=== PATIENT | female | born 1995 | race Caucasian/White ===

== ENCOUNTER 2024-03-24 07:09 | Outpatient (CLI) | payer OTHER, SELFPAY ==
--- NOTE | 2024-03-24 07:15 | CRLHL7_ITS ---
For Patients: As a result of the Century Cures Act, medical imaging exams and procedure reports are released immediately into your electronic medical record. You may view this report before your referring provider. If you have questions, please contact your health care provider. INDICATION: 28 year-old female. First trimester scan, establish dates and viability. COMPARISON: None. TECHNIQUE: Real-time gale-scale imaging of the pelvis was performed. FINDINGS: Sonographic imaging demonstrates a single living intrauterine gestation. The embryo demonstrates a regular cardiac rate measuring 176 beats per minute. The embryo`s crown-rump length measurement of 2.2 cm corresponds to a gestational age of 9 weeks 0 days with a sonographic due date of October 27, 2024. There is a normal-appearing yolk sac measuring up to 4.2 mm. There are no gross abnormalities noted within the embryo at this early state of development. The placenta has not yet developed. The gestational sac has a normal appearance and there is no evidence of a perigestational hemorrhage. The amount of fluid within the sac appears appropriate for gestational age. The cervix is closed. The myometrium appears normal. The ovaries are of normal size. The right ovary measures 4.1 x 2.9 x 2.8 cm and contains a small corpus luteum cyst of measuring 2.7 x 1.6 x 2.4 cm. The left ovary measures 3.5 x 1.6 x 2.9 cm. There are no suspicious fluid collections noted in the cul-de-sac. IMPRESSION: Normal first trimester OB ultrasound exam. Gestational age calculated at 9 weeks 0 days with a sonographic due date of October 27, 2024. Dictated by Gary Roque MD @ 03/24/2024 4:09:17 PM (Electronically Signed)
== END 2024-03-24 07:10 | disposition home or self-care (01) ==
PROVIDERS: Visit Provider Advanced Practice Midwife
DX: Z34.91 Encounter for supervision of normal pregnancy, unspecified, first trimester (principal); Z3A.09 9 weeks gestation of pregnancy
CPT/HCPCS: 76817

== ENCOUNTER 2024-03-24 08:47 | Outpatient (CLI) | payer OTHER, SELFPAY | END 2024-03-24 08:48 | disposition home or self-care (01) | PROVIDERS: Visit Provider Advanced Practice Midwife | DX: Z34.91 Encounter for supervision of normal pregnancy, unspecified, first trimester (principal); Z3A.08 8 weeks gestation of pregnancy | CPT/HCPCS: 86592; 86703; 86704; 86706; 86762; 86787; 86803; 86850; 86900; 86901; 87086; 87340 ==

== ENCOUNTER 2024-06-23 10:11 | Outpatient (CLI) | payer OTHER, SELFPAY | END 2024-06-23 10:12 | disposition home or self-care (01) | LOC: US 10:12 | PROVIDERS: Visit Provider Advanced Practice Midwife | DX: Z34.91 Encounter for supervision of normal pregnancy, unspecified, first trimester (principal); Z3A.21 21 weeks gestation of pregnancy | CPT/HCPCS: 76805 ==

== ENCOUNTER 2024-08-18 08:34 | Outpatient (CLI) | payer OTHER, SELFPAY | END 2024-08-18 08:35 | disposition home or self-care (01) | LOC: NFLDREF 08-22 00:53 | PROVIDERS: Visit Provider Advanced Practice Midwife | DX: Z34.83 Encounter for supervision of other normal pregnancy, third trimester (principal) | CPT/HCPCS: 86592 ==

== ENCOUNTER 2024-08-27 16:53 | Outpatient (CLI) | payer OTHER, SELFPAY ==
[2024-08-27 17:09] VITALS: PULSE 75; O2SAT 97
[2024-08-27 17:14] VITALS: BP 114/68; PULSE 77; RESP 77; TEMP 36.9
[2024-08-27 17:18] LABS: Appearance Urine Clear (Clear); Bilirubin Urine Negative (Negative); Blood Urine Negative (Negative); Color Urine Yellow (Yellow); Glucose Urine Negative (Negative); Ketones Urine Trace (Negative); Leukocyte Esterase Urine Trace (Negative); Nitrite Urine Negative (Negative); Protein Urine Negative (Negative); Specific Gravity Urine 1.015 (1.000-1.030); Urobilinogen Urine 0.2 (0.2-1.0); pH Urine 7.5 (5.0-8.5)
[2024-08-27 17:31] LABS: Bacteria Urine Few; Squamous Epithelial Cell Urine Few (None-Few)
[2024-08-27 18:14] LABS: Trichomonas No Trichomonas Seen (None Seen); Yeast No Yeast Seen (None Seen)
[2024-08-27 18:15] LABS: Clue Cells <20% Clue Cells Seen (None Seen)
[2024-08-27 18:42] LABS: Basophils Percent Auto 0.2 % (0.0-3.0); Eosinophils Percent Auto 0.6 % (0.0-7.0); Hematocrit 37.3 % (33.0-51.0); Hemoglobin* 12.4 gm/dL (12.0-16.0); Immature Granulocytes Pct Auto 0.4 %; Lymphocytes Percent Auto 23.4 % (20-44); Mean Corpuscular HGB Conc 33 gm/dL (32-36); Mean Corpuscular Hemoglobin 30 pg (26-34); Mean Corpuscular Volume 89 fL (80-100); Monocytes Percent Auto 3.4 % (0.0-11.0); Platelet Count* 211 K/uL (140-440); RDW Coefficient of Variation % 13.9 % (11.5-15.5); Red Blood Count 4.21 m/uL (4.00-5.20); White Blood Count* 11.42 K/uL (4.50-11.00)
--- NOTE | 2024-08-27 18:50 | P.OBLDTN_ITS ---
OB - Triage/Final Diagnosis Visit Information Date of evaluation: 08/27/24 Narrative: Anastasia is a 28 year old 2 para 1 at 30.6 weeks gestation by LMP, who presents with abdominal pain. She states that starting around 1400 she had a more constant cramping pain that increased after movement and ambulation. She did rest for about a half hour which helped the pain somewhat but it retuned after she got up and moved again. She has been feeling good movement and denies bleeding. Has normal appearing vaginal discharge. Wet prep was normal, UA mostly normal and is pending culture. Will do a CBC. Denies fever body aches chills of other associated symptoms. She endorses a flushed face which sometimes proceeds a fever for her. VSS. She denies changes in pain based on specific movements but does feel that it improves when on her side and increases with sitting or upright positions. She is passing gas and endorses a BM today. We discussed possible causes and contributors. On palpation she endorse pain with deeper palpation to the top middle of her uterus (she states this is where her placenta is located) and in the back LQ on the right and left side with a slight more on the right side. ON SVE she was found to be closed, thick, and high. We discussed an US evaluation which she declines at this time. She states that after resting the pain is mostly resolved. She is requesting to ambulate and see if the pain returns. If it remains tolerable she would like to discharge. If it returns she will consider an US evaluation. FHR tracing reactive and no contractions were noted on the TOCO. She denies contractions and doesn't feel that this is labor related. She states that she feels very reassured with a good FHR tracing. Reviewed strict reevaluation if symptoms increase, are not resolving or develops other associated symptoms. Evaluation Cervical dilation (cm): 0 Laboratory results: Laboratory Tests 08/27/24 08/27/24 08/27/24 Range/Units 18:36 18:00 17:09 WBC Pending RBC Pending Hgb Pending Hct Pending MCV Pending MCH Pending MCHC Pending Plt Count Pending Neut % (Auto) Pending Lymph % (Auto) Pending [place] % (Auto) Pending Eos % (Auto) Pending Baso % (Auto) Pending Neut # (Auto) Pending Lymph # (Auto) Pending [place] # (Auto) Pending Eos # (Auto) Pending Baso # (Auto) Pending Urine Color Yellow (Yellow) Urine Appearance Clear (Clear) Urine pH 7.5 (5.0-8.5) Ur Specific Harmony 1.015 (1.000-1.030) Urine Protein Negative (Negative) Urine Glucose (UA) Negative (Negative) Urine Ketones Trace A (Negative) Urine Blood Negative (Negative) Urine Nitrite Negative (Negative) Urine Bilirubin Negative (Negative) Urine Urobilinogen 0.2 (0.2-1.0) Ur Leukocyte Esterase Trace A (Negative) Urine RBC 2-5 A (0-2) Urine WBC 2-5 (0-5) Ur Squamous Epith Cells Few (None-Few) Urine Bacteria Few A (None) Vaginal Trichomonas No Trichomonas Seen (None Seen) Vaginal Yeast No Yeast Seen (None Seen) Vaginal Clue Cells <20% Clue Cells Seen A (None Seen) Vital signs: Vital Signs - 24 hr 08/27/24 17:09 08/27/24 17:14 08/27/24 17:14 Temperature 98.4 F Pulse Rate 77 Respiratory Rate 77 H Blood Pressure 114/68 Pulse Oximetry 97 Fetus (Single) Heart Rate Baseline: 135 Rubbish Collection Supervisor Variability: Moderate (6-25) Monitor Accelerations: Present Monitor Decelerations: None Final Diagnosis (1) : Status: Acute (2) Abdominal pain affecting : Status: Acute
[2024-08-27 18:53] LABS: Slide Review Reflex No
--- NOTE | 2024-08-27 19:38 | CRLHL7_ITS ---
For Patients: As a result of the Century Cures Act, medical imaging exams and procedure reports are released immediately into your electronic medical record. You may view this report before your referring provider. If you have questions, please contact your health care provider. CLINICAL HISTORY: Abdominal cramping FINDINGS: Sonographic imaging demonstrates normal size and uniform echotexture of the liver. The spleen is of normal size. The pancreas appears normal. The proximal abdominal aorta and IVC appear normal. There is no evidence of ascites. Cholelithiasis. 2.6 centimeter gallstone present. The gallbladder wall measures 2 mm in thickness. The common bile duct measures 3 mm in size within the bal hepatis. The kidneys appear symmetric. The right kidney measures 12.9 cm in length and the left kidney measures 13.3 cm. There is no evidence of a renal calculus or hydronephrosis. IMPRESSION: 1. Cholelithiasis with 2.6 centimeter gallstone. Normal gallbladder wall. No pericholecystic fluid is seen. Dictated by Mikala Carter MD @ 08/27/2024 8:58:43 PM (Electronically Signed)
[2024-08-27] MEDS: ACETAMINOPHEN 500 MG TABLET 1000 MG PO (21:09)
--- NOTE | 2024-08-27 21:35 | PC.OBNST ---
NST Note NST Note Start: 08/27/24 16:56 Freq: ONCE Status: Active Protocol: Document 08/27/24 21:33 OLAYINKAGregory (Rec: 08/27/24 21:34 JOSEPH Marin) NST Note 2 Para (# of births) 1 EDC 10/30/24 Gestational Age In Weeks & Days 30 Weeks & 6 Days Patient Presented with Complaint(s) of Contractions/cramping,Pain, Nausea and vomiting If Pain, describe location abdominal pain Patient had abdominal ultrasound and was found to have a 2.6 cm gallstone. Reactive Yes Appropriate for Gestational Age Yes ELIZABETH Ryan RN Date 08/27/24 Reactive Yes Appropriate for Gestational Age Yes ELIZABETH Leach CNM Date 08/27/24 OB NST charge Yes Complete NST Note via Write Note Yes The provider's electronic signature indicates the NST is reactive/appropriate for gestational age. *Note to provider: If an addendum is required, open the patient's chart and click on the note under the Nurse/Allied Health tab.
== END 2024-08-27 21:23 | disposition home or self-care (01) ==
LOC: OB OUT 16:53 → OB 16:54
PROVIDERS: Visit Provider Advanced Practice Midwife
DX: O47.03 False labor before 37 completed weeks of gestation, third trimester (principal); Z3A.30 30 weeks gestation of pregnancy
CPT/HCPCS: 36415; 59025; 76700; 81001; 81003; 85025; 87086; 87210; G0463; A9270

== ENCOUNTER 2024-10-06 09:59 | Outpatient (CLI) | payer OTHER, SELFPAY ==
[2024-10-07 11:00] LABS: Strep B DNA Probe Negative (Negative)
[2024-10-07 11:07] LABS: Strep B Susceptibility Needed? No
== END 2024-10-06 10:00 | disposition home or self-care (01) ==
LOC: NFLDREF 09:59
PROVIDERS: Visit Provider Advanced Practice Midwife
DX: Z34.83 Encounter for supervision of other normal pregnancy, third trimester (principal)
CPT/HCPCS: 87081; 87653

== ENCOUNTER 2024-10-27 09:58 | Outpatient (CLI) | payer OTHER, SELFPAY | END 2024-10-27 09:59 | disposition home or self-care (01) | LOC: NFLDREF 10-30 16:38 | PROVIDERS: Visit Provider Advanced Practice Midwife | DX: R30.0 Dysuria (principal) | CPT/HCPCS: 87086 ==

== ENCOUNTER 2024-11-02 17:55 | Outpatient (CLI) | payer OTHER, SELFPAY ==
--- OUTSIDE RECORDS SUMMARY | 2024-04-29 04:50 | XMS_ITS ---
Author Organization [facility] Address [address] [place] [phone] Care Team Providers Care Resource Development Manager Name Role Phone BRIELLE CARNEY Unavailable [phone] Allergies No Known Allergies REASON FOR VISIT ALLERGIC REACTION Problems Problem Type SNOMED Code ICD Code Onset Dates Problem Status W/U Status Risk Notes Problem [id number] Atopic dermatitis, unspecified type (L20.9) Active confirmed Vital Signs Temperature 98.6 degrees Fahrenheit 04/29/20 24 Blood pressure systolic 109 mm Hg 04/29/20 24 Blood pressure diastolic 71 mm Hg 024 Heart Rate 63 /min 04/29/2024 Respiratory Rate 17 /min 04/29/2024 Height 68 in 04/29/2024 Weight 180 lbs 04/29/2024 BMI 27.37 kg/m2 04/29/2024 Oximetry 99 % 04/29/2024 Weight-kg 81.65 kg 04/29/2024 Encounters Encounter Location Date Provider Diagnosis Urgent [address] [address] 04/29/2024 BRIELLE CARNEY Atopic dermatitis, unspecified type L20.9 and Pruritus L29.9 Assessments Encounter Date Diagnosis (ICD Code) Assessment Notes Treatment Notes Treatment Clinical Notes Section Notes 04/29/2024 Atopic dermatitis, unspecified type (ICD-10 - L20.9) Follow-up precautions discussed for any worsening of condition 04/29/2024 Pruritus (ICD-10 - L29.9) Continue Benadryl every 4 hours as needed. Zyrtec daily. 04/29/2024 Other Reviewed patien t history and previous charts available. Discussed with patient pertinent previous history. The patient left in good spirits with personal belongings to home in no observed distress. The patient agreed to the plan of care. Risk and benefits of all medications and treatments given were discussed with the patient who verbalized an understanding of all education. Questions encouraged and answered. The patient verbalized an understanding of all instructions given. Plan Of Treatment Treatment Notes Assessment Notes Atopic dermatitis, unspecified type Foll ow-up precautions discussed for any worsening of condition Pruritus Continue Benadryl ev isacc 4 hours as needed. Zyrtec daily. Other Reviewed patient his tory and previous charts available. Discussed with patient pertinent previous history. The patient left in good spirits with personal belongings to home in no observed distress. The patient agreed to the plan of care. Risk and benefits of all medications and treatments given were discussed with the patient who verbalized an understanding of all education. Questions encouraged and answered. The patient verbalized an understanding of all instructions given. Next Appt Details Follow Up: prn, Reason: Progress Notes * ESTHER MARROQUINEDOB:[birth year] (29 yo F)Acc No.[id number]:04/29/2024 Progress Notes Patient: ESTHER WEI Provider: Elle Carney MD :1995 A ge:28 Y S ex:Female Date:04/29/2024 Phone: Address:[address] [place], [place] [id number] Subjective: * Chief Complaints: * 1 . ALLERGIC REACTION. * HPI: G eneral: 28-year-old female who is 13 weeks complaining of a rash all over her arms and torso this morning. She does not know how she got the rash and is unaware of any allergies. She took a Benadryl about an hour and a half ago and now reports the rash is almost gone. * ROS: G eneral/Constitutional: Patient denies c hills, fatigue, fever, headache, Body aches. R espiratory: Patient denies s hortness of breath. C ardiovascular: Patient denies c hest pain, dizziness, weakness. G astrointestinal: Patient denies a bdominal pain, nausea, vomiting, diarrhea.? S kin: Comments S [facility] for details. N eurologic: Patient denies b alance difficulty, dizziness, gait abnormality, new onset headache, tingling/numbness. * Medical History: , : yes. * Family History: M other: alive. * Medications: N one * Allergies: N .K.D.A. Objective: * Vitals: W t:180lbs, Ht: 68 in, Temp:98.6F, BP:109/71mm Hg, HR:63/min, RR:17/min, Oxygen sat %:99%, Wt-k.65 kg, BMI:27.37Index. * Examination: G eneral Examination: GENERAL APPEARANCE: p leasant, well nourished, in no acute distress. HEAD: n ormocephalic, atraumatic. LYMPH NODES: n o lymphadenopathy. SKIN: F aint maculopapular rash over forearms. HEART: r egular rate and rhythm. LUNGS: c lear to auscultation bilaterally, good air movement. NEUROLOGIC: a lert and oriented, cooperative with exam, gait normal. Assessment: * Assessment: 1. A topic dermatitis, unspecified type - L20.9 (Primary) 2 . P ruritus - L29.9 Plan: * Treatment: 2. P ruritus Notes: Continue Benadryl every 4 hours as needed. Zyrtec daily. 3. O thers Notes: Reviewed patient history and previous charts available. Discussed with patient pertinent previous history. The patient left in good spirits with personal belongings to home in no observed distress. The patient agreed to the plan of care. Risk and benefits of all medications and treatments given were discussed with the patient who verbalized an understanding of all education. Questions encouraged and answered. The patient verbalized an understanding of all instructions given. * Follow Up: p rn * Billing Information: * Visit Code: 00883 NEW OUTPATIENT/OFFICE VISIT LEVEL 3. Modifiers: 25 * Procedure Codes: * Electronic signature of BRIELLE CARNEY M.D. on 11/02/2024 at 06:58 PM CDT Sign off status: Pending * Provider: Elle Carney MD Date: 06/30/2023 Generated for Georgia walter/Ayanna/Shanaitting on: 0 11/02/2024 06:58 PM CDT History and Physical Notes * HPI (History of Present Illness) Category Sub-Category Detail Notes Category Not es General 28-year-old fem kennedy who is 13 weeks complaining of a rash all over her arms and torso this morning. She does not know how she got the rash and is unaware of any allergies. She took a Benadryl about an hour and a half ago and now reports the rash is almost gone. Examination Category Sub-Category Detail Notes Category Not es General Examination GENERAL APPEARANCE: pleasant , well nourished, in no acute distress HEAD: normocephalic, atrau matic THROAT: NECK/THYROID: HEART: regular rate and rhy thm LUNGS: clear to auscultatio n bilaterally, good air movement ABDOMEN: NEUROLOGIC: alert and oriented, cooperative with exam, gait normal SKIN: Faint maculopapular rash over forearms LYMPH NODES: no lymphadenopathy
[2024-11-02 18:45] VITALS: BP 104/75; PULSE 68; PULSE 75; O2SAT 98
--- OUTSIDE RECORDS SUMMARY | 2024-11-02 18:58 | XMS_ITS | Clinical Summary ---
Author Organization [facility] Address [address] [place] [address] Care Team Providers Care Warp Splitter Name Role Phone Yajaira Lane MD Primary Care Provider Allergies No known active allergies Medications norethindrone, Contraceptive, (MICRONOR, 28,) 0.35 mg tabletIndication s: control counseling Take 1 Tablet (0.35 mg) by mouth once daily. 84 Tablet 4 01/11/2024 Active vit 28/iron fum/folic (multivitamin folic acid 1 mg) 01/19/2024 Active cholecalciferol (Vitamin D) 1,000 unit capsule 01/19/2024 Active Active Problems Problem Noted Date Diagnosed Date PCOS (polycystic ovarian syndrome) 01/07/2024 History of herniated intervertebral disc 024 Social History Tobacco Use Types Packs/Day Years Used Date Smoking Tobacco: Never Smokeless Tobacco: Never Tobacco Cessation:Counseling Given: Not Answered Alcohol Use Standard Drinks/Week Comments Yes 0 (1 standard drink = 0.6 oz pur e alcohol) occasinally PHQ-2 Answer Date Recorded PHQ-2 TOTAL SCORE 0 01/19/2024 Social Connections Answer Date Recorded Do you often feel lonely or isolated from those around you? 0 01/07/2024 Financial Resource Strain Answer Date R ecorded Difficulty of Paying Living Expenses 3 01/07/2024 Difficulty of Paying Living Expenses Not on file 01/07/2024 Food Insecurity Answer Date Recorded Do you worry your food will run out before you are able to buy more? 1 01/07/2024 Transportation Needs Answer Date Record ed Does lack of transportation keep you from medica l appointments? 1 01/07/2024 Does lack of transportation keep you from work, meetings or getting things that you need? 1 01/07/2024 Housing Stability Answer Date Recorded What is your housing situation today? 1 01/07/2024 Utilities Answer Date Recorded Do you have trouble paying f or utilities (for example, heat, electricity, water, phone)? 1 01/07/2024 Comments No Sex and Gender Information Value Date Recorded Sex Assigned at Not on file Legal Sex Female 12:36 PM CDT Gender Identity Not on file Sexual Orientation Not on file Obstetrics History Last Filed Vital Signs Vital Sign Reading Time Taken Comments Blood Pressure 116/56 01/19/2024 10:10 AM CDT Pulse 61 01/19/2024 10:10 AM CDT Temperature 36.9 C (98.4 F) 01/19/2024 10:10 AM CDT Respiratory Rate 16 01/19/2024 10:10 AM CDT Oxygen Saturation 100% 01/19/2024 10:10 AM CDT Inhaled Oxygen Concentration - - Weight 77.6 kg (171 lb) 01/19/2024 10:10 AM CDT Height 170.2 cm (5' 7) 01/07/2024 1:54 PM CDT Body Mass Index 26.78 01/07/2024 1:54 PM CDT Plan of Treatment Health Maintenance Due Date Last Done Comments Tdap 10/08/2007 HIV for age 15-65 10/08/2011 Hepatitis C screening for ag e 18-79 2014 Hepatitis B series for 19+ ( 1 of 3 - 19+ 3-dose series) 10/08/2015 Tetanus booster 2016 Pap test for age 21-65 2017 COVID-19 vaccine series ( season) 2024 BMI (ht and wt on same day) for age 18+ 01/06/2025 01/07/2024 Influenza Vaccine (Season Ended) 2025 Depression screening for age 12+ 01/18/2025 01/19/20 24 Pneumococcal series for age 6-49 Aged Out No longer eligible based on patient's age to complete this topic Insurance [employer] Care Teams Warp Splitter Relationship Specialty [place] [address] [place] [address] PCP - General Family Practice 01/07/24
--- OUTSIDE RECORDS SUMMARY | 2024-11-02 18:58 | XMS_ITS | Patient Health Record ---
Author Organization [facility] Address [address] [place] [address] Care Team Providers Care Construction Inspector Name Role Phone BRIELLE CARNEY Unavailable [phone] Allergies No Known Allergies Reason For Referral No Information Problems Problem Type SNOMED Code ICD Code Onset Dates Problem Status W/U Status Risk Notes Problem [id number] Atopic dermatitis, unspecified type (L20.9) Active confirmed Vital Signs Heart Rate 63 /min 04/29/2024 Temperature 98.6 degrees Fahrenheit 04/29/2024 Respiratory Rate 17 /min 04/29/2024 Oximetry 99 % 04/29/2024 Blood pressure diastolic 71 mm Hg 04/29/2024 Weight-kg 81.65 kg 04/29/2024 Height 68 in 04/29/2024 Blood pressure systolic 109 mm Hg 04/29/2024 Weight 180 lbs 04/29/2024 BMI 27.37 kg/m2 04/29/2024 Encounters Encounter Location Date Provider Diagnosis Urgent [address] [address] 04/29/2024 BRIELLE CARNEY Atopic dermatitis, unspecified type [...] of all instructions given. Plan Of Treatment No Information Insurance Providers Payer Name Payer Address Payer Phone Subscriber Number Group Number Insured Name Patient Relationship to Insured Coverage Start Date Coverage End Date [address]annie [address] [place] [phone] [id number] ESTHER MARROQUIN Self - patient is the insured 4
--- NOTE | 2024-11-02 19:16 | PC.OBNST ---
NST Note NST Note Start: 11/02/24 18:10 Freq: ONCE Status: Active Protocol: Document 11/02/24 19:15 SHERLEY (Rec: 11/02/24 19:16 SHERLEY Desktop) NST Note 2 Para (# of births) 1 EDC 10/30/24 Gestational Age In 40 Weeks & 3 Days Weeks & Days Patient Presented Contractions/cramping with Complaint(s) of Reactive Yes Appropriate for Yes Gestational Age ELIZABETH Hernandez RN Date 11/02/24 Reactive Yes Appropriate for Yes Gestational Age ELIZABETH Burnett RN Date 11/02/24 OB NST charge Yes Complete NST Note Yes via Write Note The provider's electronic signature indicates the NST is reactive/appropriate for gestational age. *Note to provider: If an addendum is required, open the patient's chart and click on the note under the Nurse/Allied Health tab.
== END 2024-11-02 19:05 | disposition home or self-care (01) ==
LOC: OB OUT 17:55 → OB 17:55
PROVIDERS: Visit Provider Advanced Practice Midwife
DX: O47.1 False labor at or after 37 completed weeks of gestation (principal); Z3A.40 40 weeks gestation of pregnancy
CPT/HCPCS: 59025; G0463

== ENCOUNTER 2024-11-04 21:13 | Outpatient (CLI) | payer OTHER, SELFPAY ==
--- OUTSIDE RECORDS SUMMARY | 2024-04-29 04:50 | XMS_ITS ---
Author Organization [facility] Address [address] [place] [address] Care Team Providers Care Associate Media Director Name Role Phone BRIELLE CARNEY Unavailable [phone] Allergies No Known Allergies REASON FOR VISIT ALLERGIC REACTION Problems Problem Type SNOMED Code ICD Code Onset Dates Problem Status W/U Status Risk Notes Problem [id number] Atopic dermatitis, unspecified type (L20.9) Active confirmed Vital Signs Weight 180 lbs 04/29/2024 Height 68 in 04/29/2024 Temperature 98.6 degrees Fahrenheit 04/29/20 24 Blood pressure systolic 109 mm Hg 04/29/20 24 Blood pressure diastolic 71 mm Hg 024 Heart Rate 63 /min 04/29/2024 Respiratory Rate 17 /min 04/29/2024 Oximetry 99 % 04/29/2024 Weight-kg 81.65 kg 04/29/2024 BMI 27.37 kg/m2 04/29/2024 Encounters Encounter Location Date Provider Diagnosis Urgent [address] [address] 04/29/2024 BRIELLE CARNEY Atopic dermatitis, unspecified type [...] Notes * ESTHER MARROQUINEDOB:[birth year] (29 yo F)Acc No.[id number]:04/29/2024 Progress Notes Patient: ESTHER WEI Provider: Elle Carney MD :1995 A ge:28 Y S ex:Female Date:04/29/2024 Phone: Address:[address] [place], [place] [id number] Subjective: * Chief Complaints: * 1 . [...] nausea, vomiting, diarrhea.? S kin: Comments S [facility] for details. N eurologic: Patient denies b [...] rn * Billing Information: * Visit Code: 92484 NEW OUTPATIENT/OFFICE VISIT LEVEL 3. Modifiers: 25 * Procedure Codes: * Electronic signature of BRIELLE CARNEY M.D. on 11/04/2024 at 10:15 PM CDT Sign off status: Pending * Provider: Elle Carney MD Date: 06/30/2023 Generated for Georgia walter/Ayanna/Shanaitting on: 0 11/04/2024 10:15 PM CDT History and Physical Notes * [...]
[2024-11-04 21:32] VITALS: BP 116/65; PULSE 95; RESP 14; TEMP 36.8
--- OUTSIDE RECORDS SUMMARY | 2024-11-04 22:15 | XMS_ITS | Patient Health Record ---
Author Organization [facility] Address [address] [place] [address] Care Team Providers Care Electrical Supervisor Name Role Phone BRIELLE CARNEY Unavailable [phone] Allergies No Known Allergies Reason For Referral No Information Problems Problem Type SNOMED Code ICD Code Onset Dates Problem Status W/U Status Risk Notes Problem [id number] Atopic dermatitis, unspecified type (L20.9) Active confirmed [...] Encounters Encounter Location Date Provider Diagnosis Urgent [address] [address] 04/29/2024 BRIELLE CARNEY Atopic dermatitis, unspecified type [...] Start Date Coverage End Date [address]annie [address] [place] [place] [id number] ESTHER MARROQUIN Self - patient is the insured 4
--- OUTSIDE RECORDS SUMMARY | 2024-11-04 22:15 | XMS_ITS | Clinical Summary ---
Author Organization [facility] Address [address] [place] [address] Care Team Providers Care Hydraulic Pile Hammer Operator Name Role Phone Yajaira Lane MD Primary [...] complete this topic Insurance [employer] Care Teams Hydraulic Pile Hammer Operator Relationship Specialty [place] [address] [place] [address] PCP - General Family Practice 01/07/24
[2024-11-04] MEDS: hydrOXYzine pamoate 25 MG CAPSULE 100 MG PO (22:21)
[2024-11-04] MEDS: MORPHINE 10 MG/ML inj IM (22:40)
--- NOTE | 2024-11-04 23:25 | PC.OBNST ---
NST Note NST Note Start: 11/04/24 21:22 Freq: ONCE Status: Active Protocol: Document 11/04/24 23:24 HAMILTON (Rec: 11/04/24 23:25 HAMILTON [id number]) NST Note 2 Para (# of births) 1 EDC 10/30/24 Gestational Age In 40 Weeks & 5 Days Weeks & Days Patient Presented Contractions/cramping with Complaint(s) of Reactive Yes RN Jesus Martinez, RN Date 11/04/24 Reactive Yes ELIZABETH Lui RN Date 11/04/24 OB NST charge Yes Complete NST Note Yes via Write Note The provider's electronic signature indicates the NST is reactive/appropriate for gestational age. *Note to provider: If an addendum is required, open the patient's chart and click on the note under the Nurse/Allied Health tab.
== END 2024-11-04 22:46 | disposition home or self-care (01) ==
LOC: OB OUT 21:13 → OB 21:14
PROVIDERS: Visit Provider Advanced Practice Midwife
DX: O47.1 False labor at or after 37 completed weeks of gestation (principal); Z3A.40 40 weeks gestation of pregnancy
CPT/HCPCS: 59025; G0463; A9270; J2270

== ENCOUNTER 2024-11-07 10:55 | Inpatient (IN) | payer OTHER, SELFPAY ==
[2024-11-07 11:14] VITALS: PULSE 75; O2SAT 97
[2024-11-07 11:18] VITALS: BP 113/68; PULSE 76; RESP 18; TEMP 36.7
--- NOTE | 2024-11-07 12:17 | P.LDBA_ITS ---
Subjective History of Present Illness Date Seen: 11/07/24 Narrative: Anastasia is being admitted to Labor and Delivery for induction of labor for postdates.. She is a 29 year old at 41.1 weeks gestation. Her full history and physical was dictated by Dr. Mckenna on 10/13/24. Please see this for details. Specific Issues/Plans Partner: Bola Hernandez (15 month old son) Baby: It is a boy! H&P:? NDP on 10/13/2024? # Depression?PHQ 11 at NOB. Has trauma r/t last delivery. Working with therapy. Encouraged to consider wash driller helper. Declines meds, no past tx # Missing profile on anatomy Follow-up recommended: she is uncertain if they want to do, concerned about cost. Reviewed why this is recommended 07/21/24. Declined. # Anxiety about Delivery, PTSD? Seeing a therapist and is discussing Previously felt they did not give her options and told her what to do and unheard Prefers to avoid Pitocin and wants all other options attempted first # Gallstone, 2.3 cm Consult to general surgery if she has another flare this Recommend referral to general surgery if stable # Hx of Back injury L4-L5, bulging disc Hx of issue with epidural, had a higher placement Very dense epidural due to placement Offered anesthesia consult: declines, strongly wants to avoid Imaging:??? 06/23/2023 IMPRESSION: 1. Incomplete visualization of the profile due to position. Remainder of the anatomic survey normal. Short-term follow-up recommended. 2. Good correlation with clinical and sonographic dates. Vaccinations:?? COVID: declined? Flu: 03/24/24 Tdap: 09/22/24? RSV: N/A? 32 week mental health: []? Last pap:? Dec 2022 COVID: initial series in 2020, not boosted, unsure about booster today Flu: 03/24/2024 TDAP: OB - Problem Based A/P Additional Plan (1) Post-dates : Status: Acute (2) Encounter for induction of labor: Status: Acute Plan Assessment:?? at 41.1 weeks gestation?? GBS negative? Patient is coping well with postdates ?? Labor type: Induced, not in labor? Category 1 FHR pattern.? complicated by: Anxiety r/t past delivery, Depression, Hx of back injury L4-L5 bulging disc, gallstone Plan:?? * ?Admit to L & D? * IV access: SL if plan to use Pitocin * Monitoring per policy: continuous ? * Candidate for analgesia of choice.? Planning unmedicated for pain management * Desires waterbirth.? Consent signed and Hep C negative * Reviewed risks and benefits of IOL with Cook balloon, Pitocin vs Cytotec/Cervidil. Pt prefers Cytotec. Pitocin to follow if needed.? * Patient encouraged to reposition and ambulate to promote physiologic labor and . * Anticipate ? Delivery/Labor/Induction Plan Plan: induction Induction method: per misoprostol protocol OB Exam Physical Exam Vital signs: Pulse BP Pulse Ox 76 113/68 97 11/07/24 11:18 11/07/24 11:18 11/07/24 11:14 Narrative: Vitals Reviewed Constitutional:? Alert and oriented x3 HEENT:? Normocephalic, atraumatic Neck:? Supple Lungs:? Clear to auscultation bilaterally Heart:? Regular rate and rhythm, no murmur, rub or gallop Abdomen:? Soft, nontender, and gravid. Vertex by Abdifatah's. Extremities:? No edema or erythema Cervix: 1 cm/20%/-3 station unable to reach cervix fully due to patient intolerance. Was 1cm a few days ago in triage. NST: 140 bpm/moderate variability/+accelerations/-decelerations/mild contractions Detailed Labor and Delivery Exam Patient Gravid: yes Cervix position: posterior Consistency: soft
[2024-11-07 13:45] VITALS: BMI 35.8
[2024-11-07 15:20] VITALS: BP 98/56; PULSE 76; RESP 18; TEMP 36.6
[2024-11-07 17:53] LABS: Hematocrit 39.9 % (33.0-51.0); Hemoglobin* 13.4 gm/dL (12.0-16.0); Immature Granulocytes Abs Auto 0.02 K/uL (0.00-0.30); Immature Granulocytes Pct Auto 0.2 %; Lymphocytes Absolute Auto 2.85 K/uL (0.90-2.90); Mean Corpuscular HGB Conc 34 gm/dL (32-36); Mean Corpuscular Hemoglobin 30 pg (26-34); Mean Corpuscular Volume 88 fL (80-100); RDW Coefficient of Variation % 13.0 % (11.5-15.5); Red Blood Count 4.55 m/uL (4.00-5.20); White Blood Count* 9.76 K/uL (4.50-11.00)
[2024-11-07 17:55] LABS: Slide Review Reflex No
--- NOTE | 2024-11-07 21:28 | PM.OBPNL ---
Subjective Date Seen: 11/07/24 Narrative: ?Anastasia is coping well with labor pain/contractions. ?Chava is with her for support. ?She is using repositioning and breathing for comfort and pain management.?She has received 2 doses of Cytotec and now is srikanth regularly and needing to breath through them. Objective Exam: VSS, afebrile General Appearance:? Calm, cooperative. ?No acute distress. ? Psychiatric Exam: Alert and oriented, appropriate affect Abdomen: Gravid Ctx: ?Q 1.5-2 min apart. ? ?Moderate ? FHTs: ?Baseline: 135. ? ? Variability: moderate. ?Accels: +. ? ?Decels: ?-. SVE: 50/-3 off to pts right side Membranes: Intact ?bulging Vital Signs: Last Vital Signs Temp 98 F 11/07/24 15:20 Pulse 76 11/07/24 15:20 Resp 18 11/07/24 15:20 BP 98/56 L 11/07/24 15:20 Pulse Ox 97 11/07/24 11:14 Contractions Contraction pattern: Regular Contraction intensity: Moderate Plan Plan: Assessment:?? at 41.1 weeks gestation?? GBS negative Patient is coping well with challenges of labor.?? Labor type: Induced, Early labor? Category 1 FHR pattern.? complicated by: Anxiety r/t past delivery, Depression, Hx of back injury L4-L5 bulging disc, gallstone, postdates Labor complicated by: none Plan:?? Encouraged labor warm up circuit and water therapy if desired. Continue with routine intrapartum cares as ordered.?? Patient encouraged to move and change positions to promote physiologic labor and .?? Nonpharmacologic comfort measures per patient preference. Candidate for analgesia of choice if desired. Patient planning waterbirth Anticipate progress to NVD. ?
[2024-11-07 22:50] VITALS: BP 113/71; PULSE 75
[2024-11-07 22:51] VITALS: RESP 18; TEMP 37.2
[2024-11-08] VITALS (12 sets, daily range): BP systolic 103–124; BP diastolic 56–76; PULSE 62–75; RESP 16–19; TEMP 36.6–36.8; O2SAT 96–98
[2024-11-08] MEDS: miSOPROStoL 800 MCG/4 TABLET PR (00:32)
[2024-11-08] MEDS: LIDOCAINE 1 % PF 30 ML INJECTION (00:56)
--- NOTE | 2024-11-08 00:56 | PM.OBCN1 ---
OB - CN: HPI Date of Consult Time Seen by Provider: 00:30 Date Seen: 11/08/24 Patient: [facility] Patient Consult date: 11/08/24 Requesting Physician: Suma Graham CNM Primary Care Provider: Not a Local Provider Consult Narrative Reason for consult: retained placenta Narrative: The patient is a 29 year old G 2 P 2002 at 41.2 weeks gestation that was admitted to the Center on 11/07/24 for postdates induction of labor. She proceeded to a normal unmedicated spontaneous vaginal water at midnight. The delivery of the infant was uncomplicated. 30 minutes following the delivery of the , the placenta still had not , despite fundal massage, traction on the umbilical cord, IM Pitocin 10 units, and 800 mcg rectal misoprostol. History of Present Dating criteria: based on LMP care: good care History History 2 Elective abortions Para 1 Spontaneous abortions Hx # Term Pregnancies 1 Ectopic pregnancies Hx # Pregnancies Multiple births Number of Living Children 1 Past Pregnancies Del. Date GA/Weeks Outcome Route wt Inf Gender Labor Lgth Anesthesia Location Provider Compli 11/28/22 40 live - full term 9 lb 4 oz Male per patient report, 36 hours, short 2nd stage epidural [place] Delivery Date: 11/28/22 Last Updated by: Suma Graham CNM patient report meconium in water, LGA Labs GBS status: negative OB Labs: Lab Assessment Start: 11/07/24 11:15 Freq: ONCE Status: Active Protocol: PC.OBGBS Activity Type Activity Date Activity User E-sign Co-sign Detail Recorded Client Recorded Date Recorded By Document 11/07/24 11:19 SHERLEY No Response 11/07/24 11:22 SHERLEY 11/07/24 11:19 Lab Assessment GBS Status negative GBS Additional Criteria None Is Patient Allergic to Penicillin? No No Treatment Needed OK Are Labs Available Yes Maternal Blood Type A Maternal RH Factor Positive Evaluate Maternal Rubella Immune Status Immune Hepatitis B Surface Antigen Negative Maternal HIV Status Negative Maternal Syphillis (RPR) Status Negative [facility] Medical History Herniated lumbar intervertebral disc ?M51.26 - Other intervertebral disc displacement, lumbar region (ICD-10) Surgical History [place] teeth extracted ?K08.409 - Partial loss of teeth, unspecified cause, unspecified class (ICD-10) Family History Mother No problems noted. Maternal Grandmother Stroke Cardiovascular disease Maternal Grandfather Diabetes Father Prostate cancer Paternal Grandfather Prostate cancer Social History What is your current living situation?: I presently have a place to live Problems where you live: no known problems In the past 12 months, utilities in danger of being shut off: no In past 12 months, lack of transportation kept you from medical appts, meetings, work, or getting things needed for daily living: no In the past 12 mos, have been you worried that your food would run out before you had money to buy more?: never true In the past 12 mos, the food you bought just didn't last and you didn't have money to buy more?: never true Smoking Status: Never smoker How often does anyone, including family, friends and others, physically hurt you: never How often does anyone, including family, friends and others, insult or talk down to you: never How often does anyone, including family, friends and others, threaten you with harm: never How often does anyone, including family, friends and others, scream or curse at you: never Meds Home Medications and Allergies Home Medications ?Medication ?Instructions ?Recorded ?Confirmed ?Type cholecalciferol (vitamin D3) 25 25 mcg PO QDAY 03/24/24 11/07/24 History mcg (1,000 unit) capsule vit 168-iron 27 mg-folic 1 cap PO DAILY 03/24/24 11/07/24 History acid 800 mcg-omega3 235 mg capsule (One-A-Day -1) magnesium glycinate 100 mg (as 200 mg PO QDAY 10/20/24 11/07/24 History glycinate) tablet Allergies Allergy/AdvReac Type Severity Reaction Status Date / Time No Known Drug Allergies Allergy Verified 11/03/24 09:32 OB - H&P: Exam Physical Exam: Vital signs: Temp Pulse Resp BP Pulse Ox 98.9 F 75 18 124/76 97 11/07/24 22:51 11/08/24 00:55 11/07/24 22:51 11/08/24 00:55 11/07/24 11:14 Constitutional: Constitutional: no acute distress Comments: Feeling occasional cramping discomfort Routine Respiratory Exam: Comments: Normal respiratory effort Routine Abdominal Exam: Abdominal: Present soft; Absent tenderness Comments: Fundus firm two fingerbreadths below the umbilicus, slightly deviated to the patient's right Routine Exam: Comments: Umbilical cord protruding from the vagina. Small second-degree perineal laceration, not actively bleeding. Routine Extremities Exam: Extremities: Present normal inspection OB - Results Labs Labs: Short CBC 11/07/24 Range/Units 17:48 WBC 9.76 (4.50-11.00) K/uL Hgb 13.4 (12.0-16.0) gm/dL Hct 39.9 (33.0-51.0) % Plt Count 222 (140-440) K/uL OB - CN: A/P Assessment and Plan (1) Post-dates : Status: Acute (2) Encounter for induction of labor: Status: Acute (3) Retained placenta: Status: Acute Plan I recommended that the patient agreed to IV access so that we could administer short-acting narcotic. She agreed, and an IV was started in her right hand. Fentanyl 100 mcg was administered intravenously. Verbal consent was obtained for the patient for possible manual removal of the placenta. With fundal massage and gentle traction on the umbilical cord, I was able to deliver the placenta spontaneously. Fundus firmed appropriately following delivery of the placenta. Care was turned back over to Suma Graham CNM.
--- NOTE | 2024-11-08 01:14 | W.PM.OBVAGDE ---
OB Procedure Vag Delivery Mother Details Mother Details: The patient is a 29 year-old, 2, Para 1, admitted on 11/07/24 at 41.1 weeks gestation. : 2 Para: 2 Weeks Gestation: 41.2 Admission Date: 11/07/24 Additional Details Amniotic Membrane Status: SROM Amniotic Membrane Rupture Date: 11/08/24 Amniotic Membrane Rupture Time: 00:00 Amniotic Membrane Fluid Description: Meconium Stained Analgesia/Anesthesia Type: Nitrous Oxide Waterbirth: Yes Pitcoin: Yes (for AMTSL) Intrapartal Events: Labor Induction Induction Method: per misoprostol protocol Labor Onset: 22:30 Complete: 23:50 Pushin:50 Heart: heart tones during second stage were intermittent monitoring was attempted but patient delivered before able to obtain. Was switched to intermittent just before entering the tub. Delivery Details Delivery Date: 11/08/24 Delivery Time: 00:00 Route of delivery: Infant Gender: Male Viability: Alive; Heart Rate Present Position at Delivery: OA Delivery Details: Anastasia is a 29?y.o?at 41.2 weeks.? Anastasia was admitted for induction of labor for postdates at 41.1 weeks. She was given two doses of vaginal Cytotec then began to have regular contractions and make cervical change. She labored in her room in multiple positions, used water therapy in the regular tub and shower and then nitrous for pain. She began to feel pushy with contractions so entered tub and continuous monitoring was discontinued for planned intermittent monitoring since she was laboring on her own and last dose of Cytotec was > 8 hrs prior. ? ? She became complete at 2350, assumed with pushing.??She pushed in hands and knees positions effectively.? Spontaneous vaginal delivery at 0000 of?a viable?male infant.??Delivered in vertex OA position.??Head delivered with membranes intact, Anastasia was having difficulty staying focused and was stating, Get him out! Gentle traction was not moving baby so she was turned to her back and then directed to push again. Shoulder delivered without difficulty at that time and body followed. ?Membranes ruptured at the time of delivery of body, noted light meconium in fluid. Spontaneous cry noted.??Infant placed on maternal abdomen, cord was looped up over infants shoulder but was not a nuchal cord.??Cord?was clamped and cut after a 5+ minute delay.??Nose and mouth were bulb suctioned.? Shoulder dystocia: no? Nuchal cord: no? Meconium stained?fluid: yes light? Water : yes? ? ? 7 at 1 minute and 9 at 5 minutes.? Weight 9lbs 6oz ? Placenta delivered spontaneously and?complete?at 0047 with a?3 vessel?cord.??At [address] Pearson was called to the bedside for concerns of retained placenta. She had already been given 10 units IM Pitocin and 800mcg of rectal Cytotec. An IV was placed and 100mcg of Fentanyl was given, she then reported feeling more cramping and when Dr. Pearson applied traction the placenta delivered spontaneously. Bleeding controlled with fundal massage,?pitocin and Cytotec?for AMTSL.? ? Lacerations:? 2nd degree, repaired with 3-0?vicryl.??Right labial laceration, not bleeding, not repaired? ? Bleeding?post delivery?was: minimal. ?The fundus was firm to palpation.? Blood loss: 100?mL.? Blood loss measurement type: QBL? ? ? Sponge,?lap?and needles counts are correct.? Mother and infant were stable after delivery.? 1 Minute Interval Total Score: 7 5 Minute Interval Total Score: 9 Additional Details Shoulder Dystocia: No Placenta Delivery Time: 00:47 Placental Delivery Description: Spontaneous Delivery repair: Vicryl Procedure Done: Global Blood Loss: 100 Laceration: Perineal - 2nd Degree Blood Loss Measurement Type: QBL Bakri Used: No Sponge/Need Count Correct: Yes Cord Vessel Description: 3 Vessels Event Summary Status: Mother and infant were stable after delivery. Disposition: floor
[2024-11-08] MEDS: lidocaine HCL 2 % JELLY (TOP) STERILE 6 ML TOPICAL (01:23)
[2024-11-08] MEDS: LANOLIN CREAM 1 APPLIC TOPICAL (04:33)
[2024-11-08] MEDS: BENZOCAINE/MENTHOL SPRAY 85 GM AEROSOL 1 APPLIC TOPICAL (04:33)
[2024-11-08] MEDS: IBUPROFEN 600 MG TABLET PO ×3 (05:15→21:39)
[2024-11-08] MEDS: ACETAMINOPHEN 500 MG TABLET 1000 MG PO ×2 (08:53→18:51)
[2024-11-09 01:12] VITALS: BP 103/69; PULSE 80; RESP 18; TEMP 36.6; O2SAT 98
[2024-11-09] MEDS: ACETAMINOPHEN 500 MG TABLET 1000 MG PO (03:19)
[2024-11-09] MEDS: IBUPROFEN 600 MG TABLET PO (08:25)
[2024-11-09] MEDS: DOCUSATE SODIUM 100 MG CAPSULE PO (08:25)
--- NOTE | 2024-11-09 08:30 | P.DS_ITS ---
DS: Providers Provider Date Seen: 11/09/24 Date of admission: 11/07/24 10:55 Primary care physician: Not a Local Provider Admitting Clinician: Suma Graham CNM Attending Physician on discharge: Apolinar LEGER Date of Discharge: 11/09/24 DS: Diagnosis Discharge Diagnosis (1) care and examination of lactating mother: Status: Acute Exam Narrative: Exam Narrative: GENERAL APPEARANCE:? normal affect, alert, no distress MOOD:? appropriate CHEST:? clear to auscultation HEART:? regular rate and rhythm ABDOMEN:? soft, non-tender the uterine fundus is At Umbilicus and off right, Midline and is appropriate for the stage of recovery. PERINEUM:? mild edema of the perineum, there is a Perineal Laceration,? laceration repair clean and intact EXTREMITIES:? normal and minimal edema Const: Vital Signs, click to edit/add: Vital Signs - 24 hr 11/08/24 12:51 11/08/24 16:29 11/08/24 20:30 Temperature 97.8 F 97.9 F 98.1 F Pulse Rate [Pulse Oximeter] 72 73 71 Respiratory Rate 19 16 18 Blood Pressure [Le ft Arm] 106/70 106/72 117/74 Pulse Oximetry 97 96 98 Oxygen Delivery Me thod Room Air Room Air Room Air 11/09/24 01:12 Temperature 97.9 F Pulse Rate [Pulse Oximeter] 80 Respiratory Rate 18 Blood Pressure [Le ft Arm] 103/69 Pulse Oximetry 98 Oxygen Delivery Me thod Room Air OB - DS: Summary Hospital Course Hospital Course: Anastasia is a 29 y.o. G 2 P 2001 who was admitted to L & D for IOl for postdates and progressed quickly.? She had a NVD that was uncomplicated. The patient feels well.? The pain is well controlled with current medications.? She has no new complaints.? She is breast feeding and reports things are going well. the patient has done well.? Vitals have been stable.? She has remained afebrile.? Has a good appetite, is tolerating a general diet.? She is voiding without difficulty.? She is passing gas and has not had a bowel movement.? She is ambulating and denies any dizziness.? Has small amount of rubra lochia. She is planning POP for prevention.? ?? Problems: none? ?? plan:? Discharge home with baby.? Follow up in 2 weeks and 6 weeks.? , may see if needed? Peripartum Data delivery method: Vaginal Laceration description: Perineal - 2nd Degree Episiotomy description: None complications: none Gender: Male Infant Discharge Plan: Home Status at Discharge Overall status at discharge: patient is progressing back to baseline Time Spent with Patient Time attestation: Total time spent providing and/or coordinating discharge services: Time spent: Less than 30 minutes Discharge Plan Discharge Disposition: Home, Self-Care Date of Admission: 11/07/24 10:55 Attending Provider on Discharge: Estefania Ruffin Primary Care Provider: Provider,Not a Local Condition: Stable Anticipated Discharge Date/Time: 11/09/24 08:53 Discharge Medications: Continued cholecalciferol (vitamin D3) 25 mcg (1,000 unit) capsule 25 mcg PO QDAY One-A-Day -1 27 mg iron- 800 mcg-235 mg capsule 1 cap PO DAILY magnesium glycinate 100 mg tablet 200 mg PO QDAY Discharge Orders: Discharge Order (Routine); Ordered 11/09/24 Ordered By: Estefania Ruffin Patient Education: OB Over the Counter Medication Information, OB Vaginal/Breast Feeding Activity Level: Activity as Tolerated and No strenuous activity Discharge Diet: Regular Follow Up Appointments: [facility] [Provider Group] Forms: [facility] Info Instructions
[2024-11-09 08:35] VITALS: BP 110/72; PULSE 73; RESP 18; TEMP 36.4; O2SAT 97
== END 2024-11-09 11:05 | disposition home or self-care (01) | DRG 807 ==
PROVIDERS: Admitting Provider Advanced Practice Midwife; Visit Provider Advanced Practice Midwife
DX: O48.0 Post-term pregnancy (principal); Z37.0 Single live birth; O73.0 Retained placenta without hemorrhage; O99.344 Other mental disorders complicating childbirth; F41.9 Anxiety disorder, unspecified; F32.A Depression, unspecified; O77.0 Labor and delivery complicated by meconium in amniotic fluid; O70.1 Second degree perineal laceration during delivery; Z3A.41 41 weeks gestation of pregnancy
CPT/HCPCS: 36415; 59200; 85025; 86592; 86850; 86900; 86901; A9270; J2003; J2590; J3010

== ENCOUNTER 2025-01-01 06:04 | Day surgery (SDC) | payer OTHER, SELFPAY ==
[2025-01-01] VITALS (21 sets, daily range): BP systolic 95–129; BP diastolic 47–70; PULSE 54–82; RESP 16–20; TEMP 36.1–37.4; O2SAT 95–98; BMI 30.8
[2025-01-01] MEDS: LACTATED RINGERS 1000 ML 1,000 ML 100 ML IV (06:00)
[2025-01-01 06:40] LABS: Ur HCG Qualitative* Negative (Negative)
[2025-01-01] MEDS: SODIUM CHLORIDE 0.9 % (FLUSH) 10 ML SYRINGE IVF (06:51)
--- NOTE | 2025-01-01 07:15 | W.PM.H&PU ---
History & Physical Update History & Physical Update H&P Reviewed and patient assessed: No changes noted
--- NOTE | 2025-01-01 07:17 | P.GSOP_ITS ---
Operative Note Date of procedure: 01/01/25 Pre-op diagnosis: 1. Biliary colic. Post-op diagnosis: Same Type of Procedure: 1. Laparoscopic cholecystectomy. Indications: 29-year-old female several weeks presented with recurrent episodes of abdominal pain. Patient states that in her second trimester of she developed severe abdominal pain radiating across her mid abdomen and right upper quadrant. Patient came into the hospital to be evaluated. She had an abdominal ultrasound that showed a large stone in the gallbladder, the gallbladder wall was normal in thickness in the common bile duct was normal. Patient states that the pain lasted about 8 hours and then spontaneously resolved. She had 2 other similar episodes of pain in the last trimester of . Those painful episodes were milder and only lasted up to 5 hours. Patient was not sure if this painful episodes were related to eating food. Patient is . Her bowel movements are every day or every other day. Patient delivered her baby. On clinical exam she had no tenderness to palpation and negative Macias sign. Given patient's clinical history, biliary colic was suspected, and laparoscopic cholecystectomy was recommended. The procedure was discussed in detail. The risks associated procedure including infection, bleeding, injury to intra-abdominal organs, injury to the common bile duct, and the need for additional procedures were all discussed with the patient, and she agreed to proceed. Procedure Description: After discussing the risks and benefits of the procedure, the patient signed informed consent.? The operative site was marked and the patient was brought to the operating room and placed on the operating table in supine position.? Care was taken to pad the patient's pressure points.?? The patient was then intubated by anesthesia.?? The operative site was then prepped and draped in the usual sterile fashion.? A time-out was then performed. A 5-mm laparoscopy port was placed in the left upper quadrant guided by a 5-mm laparoscope placed into a translucent trochar.~ Passage through the layers of the abdominal wall was visualized with the laparoscope.~ A pneumoperitoneum was established. A 0-degree 5-mm laparoscope was advanced into the abdomen. The abd omen was briefly surveyed, and no adhesions were noted. A 10-mm port were placed infraumbilically and two more 5 mm ports were placed on the right under direct visualization by laparoscope. The camera was then changed to 10 mm 30-degree scope and placed into the abdomen through the 10 mm port. The left upper quadrant port entrance was examined and no injury to intra-abdominal organs was identified. The gallbladder was identified, the fundus grasped and retracted cephalad. Omentum was adherent to the anterior wall of the gallbladder. Those adhesions were taken down with hook cautery. The duodenum was adherent to the infundibulum with wispy adhesions. Those adhesions were taken down with Metzenbaum scissors with care taken not to injure the duodenum. The infundibulum was grasped and retracted laterally, exposing the peritoneum overlying the triangle of Calot. This was then divided and exposed in a blunt fashion and with hook cautery. Common bile duct was not identified but care was taken not to injure it. The cystic duct was clearly identified and bluntly dissected circumferentially. Cystic artery was identified and tissues around it were dissected off. The cystic artery and the cystic duct were clearly going into the gallbladder. The cystic duct was then doubly ligated with surgical clips on the patient's side and singly clipped on the gallbladder side and divided. The cystic artery was then similarly ligated with clips and divided as well. The gallbladder was dissected from the liver bed in retrograde fashion using hookcautery. The gallbladder was placed into an Endo-Catch bag and removed through the infraumbilical incision. Surgical site was examined for bleeding. No bleeding was seen in the surgical field. The fascia of the infraumbilical incision was then closed with 0-0 vicryl [id number] stitch under direct visualization. Pneumoperitoneum was completely reduced after viewing removal of the trocars under direct vision. The dermis of the infraumbilical incision was reapproximated with interrupted 3-0 Vicryl sutures. The skin of all incisions was then closed with 4-0 monocryl and steristrips were applied over all incisions. Dry gauze was stuffed into the umbilicus and secured in place with tape. Instrument, sponge, and needle counts were correct at closure and at the conclusion of the case. The patient was transferred to PACU in stable condition. Findings: Omental adhesions to the gallbladder but no edema of the gallbladder wall. Small umbilical hernia noted and not repaired. Surgeon: Leonard Tenorio MD Estimated blood loss (mL): 5 Specimen: Gallbladder Condition: stable Disposition: PACU
[2025-01-01] MEDS: LIDOCAINE 1%-EPI 1:100,000 20 ML INFILTRATI (07:49)
[2025-01-01] MEDS: BUPIVACAINE 0.25% 30 ML 10 ML INJECTION (07:49)
--- NOTE | 2025-01-01 07:55 | SUR.OPER ---
PATIENT QUESTIONS ANSWERED SATISFACTORILY PREOPERATIVELY. PATIENT BROUGHT TO OR #4 PER CART. Patient positioned supine on OR #4 bed. The perioperative team supported arms bilaterally on arm boards. Final approval of positioning by surgeon.
--- NOTE | 2025-01-01 07:56 | P.ANES_ITS ---
Anesthesia Charges Start Date/Time Anesthesia Start Date: 01/01/25 Anesthesia Start Time: 07:30 Stop Date/Time Anesthesia Stop Date: 01/01/25 Anesthesia Stop Time: 08:49 Coding CPT Codes CPT Codes: ANESTH SURG UPPER ABDOMEN - 47237 ([id number]) P2 - PATIENT W/MILD SYST DISEASE, QK - ACCOUNT EX[employer]IVE [employer] 2-4 CNCRNT ANES PROC, QX - MANAGER ASSET MANAGEMENT SVC W/ MD MED DIRECTION
--- NOTE | 2025-01-01 07:56 | W.ANESCHARGE ---
Anesthesia Charges Start Date/Time Anesthesia Start Date: 01/01/25 Anesthesia Start Time: 07:30 Stop Date/Time Anesthesia Stop Date: 01/01/25 Anesthesia Stop Time: 08:49 Coding CPT Codes CPT Codes: ANESTH SURG UPPER ABDOMEN - 60676 ([id number]) P2 - PATIENT W/MILD SYST DISEASE, QK - SALT MAKER 2-4 CNCRNT ANES PROC, QX - CONTINUOUS TOWEL ROLLER SVC W/ MD MED DIRECTION
--- NOTE | 2025-01-01 08:50 | P.ANES_ITS ---
Anesthesia Charges Start Date/Time Anesthesia Start Date: 01/01/25 Anesthesia Start Time: 07:30 Stop Date/Time Anesthesia Stop Date: 01/01/25 Anesthesia Stop Time: 08:49 Coding CPT Codes CPT Codes: ANESTH SURG UPPER ABDOMEN - 86642 ([id number]) P2 - PATIENT W/MILD SYST DISEASE, QX - LIME PLANT OPERATOR SVC W/ MD MED DIRECTION, QK - FOLDER STITCHER OPERATOR 2-4 CNCRNT ANES PROC
--- NOTE | 2025-01-01 08:50 | W.ANESCHARGE ---
Anesthesia Charges Start Date/Time Anesthesia Start Date: 01/01/25 Anesthesia Start Time: 07:30 Stop Date/Time Anesthesia Stop Date: 01/01/25 Anesthesia Stop Time: 08:49 Coding CPT Codes CPT Codes: ANESTH SURG UPPER ABDOMEN - 15271 ([id number]) P2 - PATIENT W/MILD SYST DISEASE, QX - EDUCATION ANALYST SVC W/ MD MED DIRECTION, QK - CLINICAL SYSTEMS EDUCATOR 2-4 CNCRNT ANES PROC
[2025-01-01] MEDS: HYDROCODONE-ACETAMIN 5-325 MG 1 TAB PO (09:56)
--- NOTE | 2025-01-01 10:55 | SUR.PHASEII ---
Patient stated she is comfortable and pain is subsiding after oral pain medication. She stated she is just very tired. She has a 7 week old baby and getting little sleep.
== END 2025-01-01 12:27 | disposition home or self-care (01) ==
PROVIDERS: Visit Provider Surgery
PROC: 0FT44ZZ Resection of Gallbladder, Percutaneous Endoscopic Approach (ICD-10-PCS; CPT 47562; principal; 2025-01-01 07:30)
DX: K80.10 Calculus of gallbladder with chronic cholecystitis without obstruction (principal); K82.8 Other specified diseases of gallbladder; K42.9 Umbilical hernia without obstruction or gangrene
CPT/HCPCS: 47562; 00790; 81025; 88304; A9270; J0330; J0665; J0690; J1100; J1171; J2250; J2405; J2704; J2710; J3010; J7120

== ENCOUNTER 2025-04-12 08:09 | Outpatient (CLI) | payer OTHER, SELFPAY ==
--- NOTE | 2025-04-12 08:15 | CRLHL7_ITS ---
For Patients: As a result of the Century Cures Act, medical imaging exams and procedure reports are released immediately into your electronic medical record. You may view this report before your referring provider. If you have questions, please contact your health care provider. LEFT BREAST ULTRASOUND CLINICAL HISTORY: LEFT breast lump. COMPARISON: None. TECHNIQUE: Real-time ultrasound imaging of LEFT breast with imaging documentation. FINDINGS: Targeted LEFT breast ultrasound performed in the area of concern at 9 o`clock 3 cm from the nipple. Normal breast tissue is present. No fibrocystic change or mass. IMPRESSION: No evidence of malignancy. No suspicious findings. RECOMMENDATIONS: Clinical follow-up and age-appropriate screening mammography. Results and recommendations were discussed with the patient at the time of the exam. A lay language report of this examination will be provided to the patient. BI-RADS Category 2: Benign Dictated by Harry Simpson MD @ 04/12/2025 8:48:48 AM jj/Dictated by: Harry Simpson MD @ 04/12/2025 8:48:00 AM (Electronically Signed)
== END 2025-04-12 08:10 | disposition home or self-care (01) ==
LOC: US 08:10
PROVIDERS: Visit Provider Family Medicine
DX: N63.20 Unspecified lump in the left breast, unspecified quadrant (principal); N64.9 Disorder of breast, unspecified
CPT/HCPCS: 76642